=== PATIENT | male | born 1975 | race African-American/Black ===

== ENCOUNTER 2022-03-29 18:51 | Emergency (ER) | payer MEDICAID ==
[~2022-03-29] VITALS: Ht 167.6 cm; Wt 90.7 kg
[2022-03-29 18:53] VITALS: BP_SYST 111
--- NOTE | 2022-03-29 19:00 | NUR ---
MD TREADWELL AT BEDSIDE FOR ASSESS.
--- NOTE | 2022-03-29 19:35 | NUR ---
ASSUME CARE OF THIS PATIENT AAOX4 AT THIS TIME, NOT IN ANY DISTRESS PT HE IS HERE FOR CHESTPAIN AND ON AND OFF PALPITATIONS. INFORMED PT ON PLAN OF CARE, WILL CONTINUE TO MONITOR.
[2022-03-29] MEDS ORDERED: iohexoL 350 mgI/mL, 100 ML INFUS..BTL IV ONE (20:37)
[2022-03-29 22:01] LABS: BASOPHILS % (AUTO) 0.5 % (0.0-2.0); EOSINOPHILS # (AUTO) 0.1 K/uL (0.0-0.4); EOSINOPHILS % (AUTO) 1.2 % (0.0-4.0); HEMATOCRIT 43.8 % (36-54); HEMOGLOBIN 15.2 g/dL (14.0-18.0); LYMPHOCYTES # (AUTO) 1.5 K/uL (1.0-5.5); LYMPHOCYTES % (AUTO) 30.6 % (20.5-51.5); MEAN CORPUSCULAR HEMOGLOBIN 32 pg (27-31); MEAN CORPUSCULAR HGB CONC 35 % (32-36); MEAN CORPUSCULAR VOLUME 93 fL (79.0-98.0); MONOCYTES # (AUTO) 0.4 K/uL (0.0-1.0); MONOCYTES % (AUTO) 8.5 % (1.7-9.3); NEUTROPHILS # (AUTO) 2.9 K/uL (1.8-7.7); NEUTROPHILS % (AUTO) 59.2 % (40.0-70.0); PLATELET COUNT (AUTO) 196 K/uL (130-430); RED CELL DISTRIBUTION WIDTH 13.3 % (9.0-15.0)
[2022-03-29 22:11] LABS: PROTHROMBIN TIME 10.6 SECS (9.5-12.5)
[2022-03-29 22:22] LABS: ALANINE AMINOTRANSFERASE 31 U/L (12-78); ALBUMIN 3.3 g/dL (3.4-4.8); ASPARTATE AMINOTRANSFERASE 23 U/L (10-37); CALCIUM 9.2 mg/dL (8.4-11.0); GLUCOSE 84 mg/dL (70-99); TOTAL BILIRUBIN 0.5 mg/dL (0.0-1.0); UREA NITROGEN, BLOOD 14 mg/dL (8-21)
[2022-03-29 22:23] LABS: ANION GAP 6 (5-15); CHLORIDE 104 mmol/L (98-107); GFR AFRICAN AMERICAN 133 mL/min (>90); POTASSIUM 4.1 mmol/L (3.5-5.1); SODIUM SERUM 138 mmol/L (136-145)
--- NOTE | 2022-03-29 22:28 | NUR ---
PT AAOX4 AT THIS TIME, NO SOB NOTED, DENIES PAIN AND DISCOMFORT. PENDING MD KANE GEIGER, WILL CONTINUE TO MONITOR.
--- NOTE | 2022-03-30 01:10 | NUR ---
INFORMED PT HE IS FOR DC. PER PT HE IS AWARE THAT HE IS GOING HOME. DC INSTRUCTION WERE GIVEN TO PT ALSO INSTRUCTED TO F/U WITH HIS PCP. INFORMED PT THAT WILL CALL FOR HIS TRANPORT AND UPDATE HIM
--- NOTE | 2022-03-30 01:36 | NUR ---
INFORMED PT THAT THERE IN NO CURRENT ETA FOR HIS BLS TRANSPORT AT THIS TIME. PT MADE AWARE TO UPDATE HIM IF THERE IS AVAILABILITY. HE VERBALZED UNDERSTANDING
--- NOTE | 2022-03-30 04:00 | NUR ---
INFORMED PT THAT THERE STILL NO AVAILABLE BLS TRANSPORT UP TO THIS TIME.
--- NOTE | 2022-03-30 06:24 | NUR ---
PT SUYAPA EASILY AROUSABLE, UPDATED HIM ON BLS TRANSPORT THAT THERE IS NO VAILABILITY UP TO THIS TIME.
[2022-03-30 09:06] VITALS: BP_SYST 139
--- NOTE | 2022-03-30 09:07 | NUR ---
Patient given written and verbal discharge instructions and verbalizes understanding. ER MD discussed with patient the results and treatment provided. Patient in stable condition. ID arm band removed. IV catheter removed intact and dressing applied, no active bleeding. NO Rx given. Patient educated on pain management and to follow up with PMD. Pain Scale 0. Opportunity for questions provided and answered. Medication side effect fact sheet provided.
== END 2022-03-30 09:06 | disposition home or self-care (01) ==
LOC: SED 18:51
DX: R07.89 Other chest pain (principal); R06.02 Shortness of breath; R00.2 Palpitations; Z79.899 Other long term (current) drug therapy
CPT/HCPCS: 99285; 71275; 71045; 80053; 83880; 85025; 85610; 85730; 84484; 36415; 93005; 73630; 76376; Q9967